=== PATIENT | male | born 1960 | race Caucasian/White ===

== ENCOUNTER 2016-05-06 10:53 | Emergency (ER) | payer BC ==
[~2016-05-06] VITALS: Ht 185.4 cm; Wt 86.7 kg
[2016-05-06] MEDS ORDERED: ASPIR 8181 M1 PO (11:27)
[2016-05-06 11:39] LABS: HEMATOCRIT 42.3 % (38.0-50.0); MCH 28.8 PG (29.0-34.0); MCHC 35.2 G/DL (30.0-36.0); MCV 81.8 FL (86-99); MEAN PLAT.VOLUME 10.1 uM^3 (9.0-12.4); PLATELET COUNT 209 K/uL (156-360); RBC DIS.WIDTH-CV 13.4 % (11.8-14.6); RBC DIS.WIDTH-SD 38.9 % (39-53); RED BLOOD COUNT 5.17 M/uL (4.00-5.50); WHITE BLOOD COUNT 8.8 K/uL (4.1-10.2)
[2016-05-06 11:57] LABS: CHLORIDE 104 mEq/L (99-109); POTASSIUM 3.8 mEq/L (3.7-5.4); SODIUM 138 mEq/L (136-147)
[2016-05-06 11:58] LABS: GLUCOSE 103 mg/dL (70-99)
[2016-05-06 12:00] LABS: ANION GAP 13 MEQ/L (2-14)
[2016-05-06 12:02] LABS: GFR ESTIMATE (CALCULATED) > 59 mL/min/
[2016-05-06 12:03] LABS: UREA NITROGEN (BUN) 10 mg/dL (9-23)
[2016-05-06 12:10] LABS: TROP-I INTERPRETATION NEGATIVE; TROPONIN-I < 0.01 ng/mL (0.0-0.30)
[2016-05-06 15:17] LABS: TROP-I INTERPRETATION NEGATIVE; TROPONIN-I < 0.01 ng/mL (0.0-0.30)
[2016-05-06 15:50] VITALS: BP 179/114
== END 2016-05-06 15:56 | disposition home or self-care (01) ==
LOC: EME 10:53
PROVIDERS: Emergency Medicine
DX: R07.89 Other chest pain (principal)
CPT/HCPCS: 71020; 80048; 84484; 85027; 93005; 99281; 99284